=== PATIENT | male | born 2005 | race Two or more races ===

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

== ENCOUNTER 2024-04-08 23:26 | Emergency (ER) | payer SELFPAY ==
[2024-04-08 23:35] VITALS: BP 126/72; PULSE 122; RESP 22; TEMP 98.8; BMI 23.7
[2024-04-08] MEDS ORDERED: ACETAMINOPHEN 325 MG TABLET (FP) ONE (23:53)
[2024-04-08] MEDS: ACETAMINOPHEN 500 MG TABLET (FP) PO ONE (23:55)
== END 2024-04-09 00:56 | disposition home or self-care (01) ==
LOC: JER 23:26
DX: S59.902A Unspecified injury of left elbow, initial encounter (principal); V19.3XXA Pedal cyclist (driver) (passenger) injured in unspecified nontraffic accident, initial encounter
CPT/HCPCS: 73070-TC-LT-FY; 99283-25

== ENCOUNTER 2024-04-25 11:22 | Emergency (ER) | payer OTHER ==
[2024-04-25 11:50] VITALS: BP 128/77; PULSE 66; RESP 18; TEMP 97.6; BMI 29.0
[2024-04-25] MEDS ORDERED: KETOROLAC TROMETHAMINE 15 MG/ML VIAL ONE (12:16)
[2024-04-25] MEDS: KETOROLAC TROMETHAMINE 15 MG/ML VIAL IM ONE (12:23)
== END 2024-04-25 14:51 | disposition home or self-care (01) ==
LOC: JER 11:22
PROC: 3E0133Z Introduction of Anti-inflammatory into Subcutaneous Tissue, Percutaneous Approach (ICD-10-PCS; principal; 2024-04-25)
DX: S52.122A Displaced fracture of head of left radius, initial encounter for closed fracture (principal); W22.8XXA Striking against or struck by other objects, initial encounter; V18.0XXA Pedal cycle driver injured in noncollision transport accident in nontraffic accident, initial encounter
CPT/HCPCS: 73070-TC-LT-FY; 73200-TC-RT; 96372; 99284-25

== ENCOUNTER 2024-04-27 13:30 | Emergency (ER) | payer OTHER ==
[2024-04-27 13:37] VITALS: BP 114/55; PULSE 90; RESP 18; TEMP 98; BMI 24.4
[2024-04-27] MEDS: KETOROLAC TROMETHAMINE 30 MG/1 ML VIAL IM ONE (14:59)
[2024-04-27] MEDS ORDERED: KETOROLAC TROMETHAMINE 30 MG/1 ML VIAL ONE (15:00)
== END 2024-04-27 15:03 | disposition home or self-care (01) ==
LOC: JER 13:30
PROC: 2W3BX1Z Immobilization of Left Upper Arm using Splint (ICD-10-PCS; principal; 2024-04-27)
PROC: 3E0133Z Introduction of Anti-inflammatory into Subcutaneous Tissue, Percutaneous Approach (ICD-10-PCS; 2024-04-27)
DX: M25.522 Pain in left elbow (principal); S52.122D Displaced fracture of head of left radius, subsequent encounter for closed fracture with routine healing
CPT/HCPCS: 99284-25

== ENCOUNTER 2024-04-30 04:41 | Emergency (ER) | payer OTHER ==
[2024-04-30 04:53] VITALS: BMI 24.4
[2024-04-30] MEDS ORDERED: ACETAMINOPHEN 500 MG TABLET (FP) ONE (05:56)
[2024-04-30] MEDS: ACETAMINOPHEN 500 MG TABLET (FP) PO ONE (06:05)
[2024-04-30] MEDS: SODIUM CHLORIDE 0.9% 500 ML INFUS.BAG IV ONE (08:10)
[2024-04-30] MEDS ORDERED: morphine SULFATE 4 MG/ML VIAL ONE (08:11)
[2024-04-30 08:18] LABS: BASO % 0.2 % (0-2.0); HEMATOCRIT 40.7 % (35.4-49); HEMOGLOBIN 13.6 GM/dL (11.7-16.9); LYMPH % 9.3 % (8-40); MCH 28.1 pg (25.7-33.7); MCHC 33.5 g/dl (32.0-35.9); MEAN CELL VOLUME 83.8 fl (80-96); MONO % 6.9 % (3.8-10.2); NEUT % 83.6 % (42.8-82.8); PLATELET COUNT 161 10^3/uL (134-434); RBC 4.86 M/mm3 (4.00-5.60); RDW 14.4 % (11.9-15.9); WHITE BLOOD COUNT 16.7 K/mm3 (4.0-10.0)
[2024-04-30] MEDS: morphine CARPU-JECT 4 MG/1 ML DISP.SYRIN IVPUSH ONE (08:19)
[2024-04-30 08:20] LABS: INR 1.17 (0.83-1.09); PROTHROMBIN TIME (PATIENT) 13.4 SEC (9.7-13.0)
[2024-04-30 08:31] LABS: POTASSIUM 4.1 mmol/L (3.5-5.1)
[2024-04-30 08:33] LABS: CALCIUM 8.6 mg/dL (8.5-10.1)
[2024-04-30 08:34] LABS: BLOOD UREA NITROGEN 14.1 mg/dL (7-18)
[2024-04-30] MEDS ORDERED: HYDROmorphone HCL CARPU-JECT 2 MG/1 ML DISP.SYRIN ONE (08:35)
[2024-04-30 08:36] LABS: CREATININE 0.7 mg/dL (0.55-1.3)
[2024-04-30 08:38] LABS: BILIRUBIN,TOTAL 1.2 mg/dL (0.2-1); TOT PROT 6.9 g/dl (6.4-8.2)
[2024-04-30] MEDS: HYDROmorphone HCl 2 MG/ML VIAL IVPUSH ONE (08:38)
[2024-04-30 08:43] VITALS: RESP 16
[2024-04-30] MEDS ORDERED: ONDANSETRON 4 MG/2 ML VIAL ONE (10:41)
[2024-04-30] MEDS ORDERED: ASPIRIN 81 MG CHEWABLE TABLETS ONE (10:50)
[2024-04-30 10:58] VITALS: BP 119/70; PULSE 88; TEMP 97.9
[2024-04-30] MEDS: ASPIRIN 81 MG CHEWABLE TABLETS PO ONE (10:58)
[2024-04-30] MEDS: ONDANSETRON 4 MG/2 ML VIAL IVPUSH ONE (10:59)
== END 2024-04-30 11:32 | disposition short-term general hospital (02) ==
LOC: JER 04:41
PROC: 3E033NZ Introduction of Analgesics, Hypnotics, Sedatives into Peripheral Vein, Percutaneous Approach (ICD-10-PCS; principal; 2024-04-30)
PROC: 3E033NZ Introduction of Analgesics, Hypnotics, Sedatives into Peripheral Vein, Percutaneous Approach (ICD-10-PCS; 2024-04-30)
PROC: 3E033GC Introduction of Other Therapeutic Substance into Peripheral Vein, Percutaneous Approach (ICD-10-PCS; 2024-04-30)
DX: S32 Fracture of lumbar spine and pelvis (principal); R07.81 Pleurodynia; M79.604 Pain in right leg; M79.605 Pain in left leg; M25.522 Pain in left elbow; V43.62XA Car passenger injured in collision with other type car in traffic accident, initial encounter; Y92.410 Unspecified street and highway as the place of occurrence of the external cause; Z20.822 Contact with and (suspected) exposure to COVID-19
CPT/HCPCS: 36415; 70450-TC; 71046-TC-FY; 71250-TC; 72125-TC; 72170-TC-FY; 73070-TC-LT-FY; 73562-TC-LT-FY; 73562-TC-RT-FY; 73610-TC-LT-FY; 73610-TC-RT-FY; 73630-TC-LT; 73630-TC-RT-FY; 74176-TC; 80053; 85025; 85610; 86850; 86900; 86901; 87635; 93005; 93010; 99285-25